=== PATIENT | female | born 1955 | race Caucasian/White ===

== ENCOUNTER 2021-11-28 11:20 | Day surgery (SDC) | payer OTHER ==
[~2021-11-28] VITALS: Ht 172.7 cm; Wt 104.7 kg
[~2021-11-28 11:20] MED LIST: LEVOTHYROXINE200 MCG PO; Mobic15 MG PO; PSEUDOEPHEDRINE30 M1 PO
[2021-11-28] MEDS ORDERED: LOSA25 PO (12:00)
== END 2021-11-28 17:50 | disposition home or self-care (01) ==
LOC: ORSCSDS 11:20
PROVIDERS: Podiatrist Foot & Ankle Surgery
PROC: 0SGJ04Z Fusion of Left Tarsal Joint with Internal Fixation Device, Open Approach (ICD-10-PCS; principal; 2021-11-28 13:00)
PROC: 0SGL04Z Fusion of Left Tarsometatarsal Joint with Internal Fixation Device, Open Approach (ICD-10-PCS; principal; 2021-11-28 13:00)
PROC: 0L8P0ZZ Division of Left Lower Leg Tendon, Open Approach (ICD-10-PCS; principal; 2021-11-28 13:00)
DX: M21.42 Flat foot [pes planus] (acquired), left foot (principal); M19.072 Primary osteoarthritis, left ankle and foot; I10 Essential (primary) hypertension; Z87.891 Personal history of nicotine dependence; E03.9 Hypothyroidism, unspecified; Z79.899 Other long term (current) drug therapy; E66.9 Obesity, unspecified; Z68.35 Body mass index [BMI] 35.0-35.9, adult
CPT/HCPCS: A9270; C1713; C1769; J0171; J0690; J1100; J1885; J2250; J2405; J2704; J2765; J3010; J7120